=== PATIENT | male | born 1930 | race Caucasian/White ===

== ENCOUNTER 2018-04-24 00:57 | Observation (INO) ==
[2018-04-24] MEDS ORDERED: amLODIPine 5 MG Tablet PO ONE (07:00)
[2018-04-24 07:35] LABS: Creatine Kinase 113 U/L (39-308)
[2018-04-24] MEDS ORDERED: Famotidine 20 MG Tablet PO SCH (09:30)
[2018-04-24] MEDS ORDERED: Regadenoson Inj 0.4 MG/5 ML Syringe IV.PUSH ONE (10:08)
--- NOTE | 2018-04-24 10:11 | P.HPCA ---
History of Present Illness Primary Care Physician: UNKNOWN Chief Complaint: Chest pain History of Present Illness: This is an 87-year-old male with history of CAD status post angioplasty without stenting in 1998, hyperlipidemia, GERD that presents to the [facility] ED to be evaluated for chest discomfort and subsequent transported via ambulance to this chest pain center for further evaluation. Describes waking up at about midnight with a crushing discomfort across the chest. Seem to worsen when he would lie flat but would improve when he would sit up. Lasted about 30 minutes. He was short of breath and nauseous. No diaphoresis. States it does not feel similar to when he had an MD in states he continues to follow cardiology. He follows Dr. Loya and last saw him about 3-4 weeks ago. Believes last stress test was a little more than a year ago. Currently denies chest discomfort. Denies history of hypertension but states his blood pressure has been running low but higher over the last few months but medication has not been started. History of CAD with angioplasty 1998 without stenting. Hyperlipidemia and GERD. Denies diagnoses of hypertension or diabetes. Denies family history of CAD. 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 Rarely has alcohol. Denies illicit drugs. Review of Systems General: Patient denies fevers, chills, and recent travel. HEENT: Patient denies headache, sore throat, difficulty swallowing. Cardiovascular: Has the chest discomfort as mentioned above. Denies sensation of heart beating rapidly or irregularly. No syncope. Denies diaphoresis. Respiratory: He was short of breath. Denies inspirational chest discomfort. Denies coughing wheezing or hemoptysis. GI: He was nauseous. Patient denies vomiting, diarrhea, abdominal pain, bloody stools. Musculoskeletal: Patient denies joint pain or edema. Denies calf pain or edema. Neurovascular: Patient denies numbness, tingling, weakness in extremities. Denies headache. Endocrine: Denies polyuria and polydipsia. Hematologic: Denies easy bruising. Skin: Denies rash or itching. PMFSH - History History Provided By: Patient - Medical History Medical History: Medical History (Last Updated 04/24/18 @ 01:11 by Zahraa Martinez) High cholesterol Myocardial infarction - Surgical History Surgical History: Surgical History (Last Updated 04/24/18 @ 01:11 by Zahraa Martinez) Hx of cardiac cath - Tobacco History Second Hand Smoke Exposure: No Smoking Status: Never smoker - Alcohol History How Often Do You Have a Drink Containing Alcohol: Monthly or less - Substance Use History Substance History: No History of Abuse - Travel History Recent Travel in the [place] Within the Last 8 Weeks: No Recent Travel Out of the Country Within the Last 8 Weeks: No Medications and Allergies Active Medications: Active Medications Clonidine HCl (Catapres) 0.1 mg PO Q6H PRN PRN Reason: SEE LABEL COMMENT Famotidine (Pepcid) 20 mg PO BID CARLOS Pravastatin Sodium (Pravachol) 40 mg PO HS CARLOS Allergies Allergy/AdvReac Type Severity Reaction Status Date / Time penicillin G Allergy Rash Verified 04/24/18 01:09 Home Medications Medication Instructions Recorded Confirmed Type ranitidine HCl [Zantac] 150 mg PO DAILY 04/24/18 04/24/18 History simvastatin [Zocor] 20 mg PO QPM 04/24/18 04/24/18 History Exam Vital signs: Vital Signs 04/24/18 06:20 04/24/18 08:10 Temperature 98.0 F 98.1 F Pulse Rate 59 L 58 L Respiratory Rate 18 20 Blood Pressure 190/86 H 169/85 H Pulse Oximetry 96 Intake & Output 04/23/18 04/24/18 04/24/18 18:59 06:59 18:59 Weight 80.2 kg Other: Date of Last Bowel Movement 04/23/18 Weight On Admission 80.2 kg Narrative: GENERAL: This is a well-nourished, well-developed patient, in no apparent distress. Patient speaks in clear complete sentences. Patient is pleasant. HEENT: Bilateral carotid bruits. Head is atraumatic and normocephalic. Neck is supple without lymphadenopathy and trachea is midline. No JVD. CARDIOVASCULAR: Regular rate and rhythm without murmurs, gallops, or rubs. RESPIRATORY: Clear to auscultation. Breath sounds equal bilaterally. No wheezes , rales, or rhonchi. Chest wall is nontender. No use of accessory muscles. GASTROINTESTINAL: Abdomen is nontender, nondistended. Abdomen soft. No obvious pulsatile mass or bruit. No CVA tenderness. Strong femoral pulses bilaterally. Normal bowel sounds in all quadrants. MUSCULOSKELETAL: Patient is moving upper and lower extremities freely. No calf tenderness or edema, no Homans sign. Strong pulses in upper and lower extremities. NEUROLOGICAL: Patient is alert and oriented. Cranial nerves 2-12 are grossly intact. No focal deficits and speech is clear. SKIN: No rash and turgor is normal. Results Cardiac Enzymes 04/24/18 Range/Units 06:40 Troponin I Less than 0.02 L (0.02-0.05) ng/mL Intake and Output 04/23/18 04/24/18 04/24/18 22:59 06:59 14:59 Other: Date of Last Bowel Movement 04/23/18 Weight 80.2 kg Weight On Admission 80.2 kg EKG interpretations - EKG EKG shows: sinus rhythm (EKGs were sinus rhythm sinus bradycardia with PVCs noted. No significant ST segment depressions or elevations.) Caprini VTE Risk Assessment Caprini VTE Risk Assessment: Moderate/High Risk (score >= 2) Caprini Risk Assessment Model: Point Value = 1 Point Value = 2 Point Value = 3 Point Value = 5 Age 41-60 Minor surgery BMI > 25 kg/m2 Swollen legs Varicose veins or History of unexplained or recurrent spontaneous Oral contraceptives or hormone replacement Sepsis (< 1 month) Serious lung disease, including pneumonia (< 1 month) Abnormal pulmonary function Acute myocardial infarction Congestive heart failure (< 1 month) History of inflammatory bowel disease Medical patient at bed rest Age 61-74 Arthroscopic surgery Major open surgery (> 45 min) Laparoscopic surgery (> 45 min) Malignancy Confined to bed (> 72 hours) Immobilizing plaster cast Central venous access Age >= 75 History of VTE Family history of VTE Factor V Leiden Prothrombin [id number] Lupus anticoagulant Anticardiolipin antibodies Elevated serum homocysteine Heparin-induced thrombocytopenia Other congenital or acquired thrombophilia Stroke (< 1 month) Elective arthroplasty Hip, pelvis, or leg fracture Acute spinal cord injury (< 1 month) Prophylaxis Regimen: Total Risk Factor Score Risk Level Prophylaxis Regimen 0-1 Low Early ambulation 2 Moderate Order ONE of the following: *Sequential Compression Device (SCD) *Heparin 5000 units SQ BID 3-4 Higher Order ONE of the following medications: *Heparin 5000 units SQ TID *Enoxaparin/Lovenox 40 mg SQ daily (WT < 150 kg, CrCl > 30 mL/min) *Enoxaparin/Lovenox 30 mg SQ daily (WT < 150 kg, CrCl > 10-29 mL/min) *Enoxaparin/Lovenox 30 mg SQ BID (WT < 150 kg, CrCl > 30 mL/min) AND/OR *Sequential Compression Device (SCD) 5 or more Highest Order ONE of the following medications: *Heparin 5000 units SQ TID (Preferred with Epidurals) *Enoxaparin/Lovenox 40 mg SQ daily (WT < 150 kg, CrCl > 30 mL/min) *Enoxaparin/Lovenox 30 mg SQ daily (WT < 150 kg, CrCl > 10-29 mL/min) *Enoxaparin/Lovenox 30 mg SQ BID (WT < 150 kg, CrCl > 30 mL/min) AND *Sequential Compression Device (SCD) Assessment and Plan - Plan * Chest pain: Patient has had serial cardiac enzymes and EKGs for ruling out purposes. He was also seen by Dr. Kay of cardiology in the chest pain center. I discussed this patient also with his motor boss Dr. Loya. Patient will undergo a Lexiscan. He likely be discharged home if stress test is nonischemic with instructions to follow-up with PCP, motor boss, nuclear supervising operator, and forming acid dumper. Return to ED for interval issues. * CAD: We will reassess with stress testing. Follow-up with his motor boss. * Hypertension: Start amlodipine. * Hyperlipidemia: Continue medication. * GERD: Continue medication. Patient is stable at this time. He is agreeable to this plan. H&P: Quality - VTE Deep Vein Thrombosis/Pulmonary Embolism Present on Admission: No
--- NOTE | 2018-04-24 11:19 | P.PNCA ---
Subjective Interval history: This 87-year-old gentleman is well-known to this physician. He was previously seen by JESSICA and full evaluation was carried out. After discussion the patient was seen and examined personally. The history is as documented. The patient is also known to Dr. Calzada and after discussion with him a nuclear stress test was ordered for further evaluation. Patient is resting comfortably at this time with no further symptoms. Medications and Allergies Active Medications: Active Medications Clonidine HCl (Catapres) 0.1 mg PO Q6H PRN PRN Reason: SEE LABEL COMMENT Famotidine (Pepcid) 20 mg PO BID CARLOS Pravastatin Sodium (Pravachol) 40 mg PO HS CARLOS Allergies Allergy/AdvReac Type Severity Reaction Status Date / Time penicillin G Allergy Rash Verified 04/24/18 01:09 Home Medications Medication Instructions Recorded Confirmed Type ranitidine HCl [Zantac] 150 mg PO DAILY 04/24/18 04/24/18 History simvastatin [Zocor] 20 mg PO QPM 04/24/18 04/24/18 History Physical Exam Vital signs: Vital Signs 04/24/18 06:20 04/24/18 08:10 Temperature 98.0 F 98.1 F Pulse Rate 59 L 58 L Respiratory Rate 18 20 Blood Pressure 190/86 H 169/85 H Pulse Oximetry 96 Intake & Output 04/23/18 04/24/18 04/24/18 18:59 06:59 18:59 Weight 80.2 kg Other: Date of Last Bowel Movement 04/23/18 Weight On Admission 80.2 kg Narrative: Well-nourished well-developed gentleman in no acute distress head normocephalic atraumatic Eyes pupils slightly is equal with the right having mild irregularity with bilateral intraocular lenses. Extraocular movements are intact sclera clear Mouth mucous membranes moist tongue well papillated no lesions Neck supple no JVD masses or nodes. Very soft carotid bruits noted Chest clear to auscultation with no rales wheezes or rhonchi Cardiovascular regular sinus rhythm with no gallops rubs or murmurs Abdomen soft nontender no guarding or rebound no hepatosplenomegaly Extremities no clubbing cyanosis or edema line neurologic patient is alert and oriented with intact cranial nerves and symmetrically equal strength Psychiatric patient's mood and affect appears to be good memory is intact Results Cardiac Enzymes 04/24/18 Range/Units 06:40 Troponin I Less than 0.02 L (0.02-0.05) ng/mL Intake and Output 04/23/18 04/24/18 04/24/18 22:59 06:59 14:59 Other: Date of Last Bowel Movement 04/23/18 Weight 80.2 kg Weight On Admission 80.2 kg Assessment and Plan - Plan * Chest pain: Patient has had serial cardiac enzymes and EKGs for ruling out purposes. He was also seen by Dr. Kay of cardiology in the chest pain center. I discussed this patient also with his crystal syrup maker Dr. Loya. Patient will undergo a Lexiscan. He likely be discharged home if stress test is nonischemic with instructions to follow-up with PCP, crystal syrup maker, hand candy cutter, and emergency nurse. Return to ED for interval issues. * CAD: We will reassess with stress testing. Follow-up with his crystal syrup maker. * Hypertension: Start amlodipine. * Hyperlipidemia: Continue medication. * GERD: Continue medication. Patient is stable at this time. He is agreeable to this plan. I am in agreement with the documentation as entered above. Sonia kay MD
--- NOTE | 2018-04-24 11:39 | NM ---
EXAM DATE: 04/24/2018 9:18 AM EDT AGE/SEX: 87 years / Male INDICATIONS:Angina. . Substernal chest pain. CLINICAL DATA: This is the patient's initial encounter. Patient reports that signs and symptoms have been present for 1 day and indicates a pain score of 3/10. MEDICAL/SURGICAL HISTORY: Hypercholesterolemia. Myocardial infarction. Hypertension. . Cardia c catheterization. COMPARISON: No prior exams available for comparison. DOSE: 8.5 mCi Tc 99m Myoview at rest 26.5 mCi [id number] at stress 0.4 mg Lexiscan STRESS SYMPTOMS: None. EJECTION FRACTION: 69 % TECHNIQUE: The patient underwent pharmacologic stress with infusion of prescribed dose. Continuous ECG tracing was monitored during stress. Gated SPECT imaging was performed after stress and conventi onal SPECT imaging was performed at rest. The examination was performed on a SPECT/CT scanner, both attenuation and non-corrected datasets were reviewed. FINDINGS: Distribution: The maximum perfused segment at stress is in the anterior wall. Perfusion Study: No reversible perfusion defects. Small matched defect in the inferior wall. Gated Study: There are intact wall motion and wall thickening without hypokinetic or dyskinetic segm ents. The ejection fraction is calculated at 69%. RISK CATEGORY: Low (<1% Annual Motality Rate) CONCLUSION: 1. No reversible perfusion defects to suggest ischemia. 2. Normal ejection fraction. Electronically signed by: Daniel Logan MD 04/24/2018 11:37 AM EDT
[2018-04-24 12:01] VITALS: BP 162/77; PULSE 60; RESP 18; TEMP 97.8; O2SAT 95
[2018-04-24] MEDS ORDERED: amLODIPine 5 MG Tablet PO SCH (13:15)
--- NOTE | 2018-04-25 11:09 | TR ---
Date Performed: 04/24/2018 Time Performed: 10:20:29 DOCTOR: Bob Kay DRUG LIST: CLINICAL HISTORY: REASON FOR TEST: Angina REASON FOR ENDING: OBSERVATION: CONCLUSION: Lexiscan stress test was performed under standard four minute protocol. Radionuclide was injected one minute prior to ending the test. No electrocardiographic abormalities were present to suggest ischemia. Nuclear imaging and interpretation are pending. COMMENTS:
== END 2018-04-24 15:20 | disposition home or self-care (01) ==
LOC: NEDDLT 05:50 → NEPGCP 05:50
PROVIDERS: ADMIT Internal Medicine Interventional Cardiology; ATTEND Internal Medicine Interventional Cardiology